=== PATIENT | male | born 1945 | race Caucasian/White ===

== ENCOUNTER 2019-01-04 04:56 | Emergency (ER) | payer MEDICARE, OTHER ==
[~2019-01-04] VITALS: Ht 165.1 cm; Wt 77.3 kg
[2019-01-04 05:04] VITALS: TEMP 97
[2019-01-04 05:34] LABS: COLLECTION METHOD CLEAN CATCH
[2019-01-04 05:35] LABS: BASO % 0.3 % (0.0-2.0); EOS # 0.2 (0.0-0.7); EOS % 1.6 % (0-4.0); GRAN # 6.4 (1.4-6.5); GRAN % 69.4 % (42.2-75.2); HEMATOCRIT 43.3 % (42.0-52.0); HEMOGLOBIN 15.2 g/dl (13.5-18.0); LYMPH # 1.8 (1.2-3.4); MEAN CELL VOLUME 90 fl (80.0-100.0); MEAN CORPUSCULAR HEMOGLOBIN 32 pg (27.0-31.0); MEAN CORPUSCULAR HGB CONC 35 g/dl (33.0-37.0); MEAN PLATELET VOLUME 9.5 fl (7.4-10.4); MONO # 0.8 (0.1-0.6); MONO % 8.5 % (1.7-9.3); PLATELET COUNT 168 K/mm3 (130-400); RED BLOOD COUNT 4.81 M/mm3 (4.20-5.60); REDCELL DISTRIBUTION WIDTH-CV 12.7 % (11.5-14.5)
[2019-01-04] MEDS ORDERED: ACTOPLUS MET 501 TAB PO (05:45)
[2019-01-04] MEDS ORDERED: ZOCOR 20MG20 MG PO (05:46)
[2019-01-04 05:49] LABS: MUCOUS Present /lpf; PH 5 (5-8); SQUAMOUS EPITHELIAL 0-2 /hpf; URINE APPEARANCE Hazy; URINE BACTERIA None Seen /hpf; URINE BILIRUBIN Negative (NEGATIVE); URINE BLOOD 3+ (NEGATIVE); URINE COLOR Yellow; URINE GLUCOSE 1+ (NEGATIVE); URINE KETONE Negative (NEGATIVE); URINE LEUKOCYTE ESTERASE Negative (NEGATIVE); URINE NITRATE Negative (NEGATIVE); URINE PROTEIN(semi-quant) Negative (NEGATIVE); URINE RBC >50 /hpf; URINE UROBILINOGEN Negative (NEGATIVE)
[2019-01-04] MEDS ORDERED: NORCO 325 MG-51 TAB PO (05:55)
[2019-01-04] MEDS ORDERED: FLOMAX 0.40.4 MG/CAP PO (05:56)
[2019-01-04 05:58] LABS: ALBUMIN 4.6 gm/dL (3.5-5.0); BILIRUBIN,TOTAL 0.9 mg/dL (0.0-1.0); CREATININE, serum 1.05 (0.66-1.25); POTASSIUM 4.3 mmol/L (3.4-5.0); TOTAL PROTEIN 7.8 gm/dL (6.4-8.2)
[2019-01-04 07:50] VITALS: BP 130/72; PULSE 65
== END 2019-01-04 07:53 | disposition home or self-care (01) ==
LOC: COL.ER 04:56
PROVIDERS: Emergency Medicine
DX: N20.1 Calculus of ureter (principal); E11.9 Type 2 diabetes mellitus without complications; Z79.84 Long term (current) use of oral hypoglycemic drugs
CPT/HCPCS: J1885; J2270; J7040; Q9967

== ENCOUNTER 2020-03-01 20:16 | Emergency (ER) | payer MEDICARE, OTHER ==
[~2020-03-01] VITALS: Ht 165.1 cm; Wt 76.4 kg
[~2020-03-01 20:16] MED LIST: ACTOPLUS MET 501 TAB PO; FLOMAX 0.40.4 MG/CAP PO; NORCO 325 MG-51 TAB PO; ZOCOR 20MG20 MG PO
[2020-03-01 20:54] LABS: BASO % 0.4 % (0.0-2.0); EOS # 0.2 (0.0-0.7); EOS % 1.5 % (0-4.0); GRAN # 7.7 (1.4-6.5); GRAN % 72.2 % (42.2-75.2); HEMATOCRIT 42.6 % (42.0-52.0); HEMOGLOBIN 15.1 g/dl (13.5-18.0); LYMPH % 18.5 % (20.0-51.0); MEAN CELL VOLUME 89 fl (80.0-100.0); MEAN CORPUSCULAR HEMOGLOBIN 31 pg (27.0-31.0); MEAN CORPUSCULAR HGB CONC 35 g/dl (33.0-37.0); MEAN PLATELET VOLUME 9.1 fl (7.4-10.4); MONO # 0.8 (0.1-0.6); PLATELET COUNT 184 K/mm3 (130-400); RED BLOOD COUNT 4.81 M/mm3 (4.20-5.60); REDCELL DISTRIBUTION WIDTH-CV 12.3 % (11.5-14.5)
[2020-03-01 20:59] LABS: ALANINE AMINOTRANSFERASE 19 U/L (4-49); ALBUMIN 4.7 gm/dL (3.5-5.0); ALKALINE PHOSPHATASE 70 U/L (50-136); ANION GAP 9 mmol/L (7-16); AST,SGOT 26 U/L (15-37); BILIRUBIN,TOTAL 1.1 mg/dL (0.0-1.0); BLOOD UREA NITROGEN 19 mg/dL (9-20); CALCIUM 9.7 mg/dL (8.4-10.2); CARBON DIOXIDE 25 mmol/L (22-30); CHLORIDE 103 mmol/L (98-107); CREATININE, serum 0.99 (0.66-1.25); GLUCOSE 157 mg/dL (74-106); LIPASE 202 U/L (23-300); POTASSIUM 4.1 mmol/L (3.4-5.0); SODIUM 137 mmol/L (137-145); TOTAL PROTEIN 7.9 gm/dL (6.4-8.2)
[2020-03-01 21:07] LABS: C-REACTIVE PROTEIN < 0.5 mg/dL (0.0-0.9)
[2020-03-01 21:11] LABS: TROPONIN-I < 0.012 ng/mL (0.000-0.035)
[2020-03-01] MEDS ORDERED: PROTONIX 40MG T40 MG PO (22:05)
[2020-03-01 23:01] VITALS: BP 129/72; PULSE 63; TEMP 98.2
== END 2020-03-01 23:09 | disposition home or self-care (01) ==
LOC: COL.ER 20:16
PROVIDERS: Emergency Medicine
DX: K21.9 Gastro-esophageal reflux disease without esophagitis (principal); E11.9 Type 2 diabetes mellitus without complications; E78.5 Hyperlipidemia, unspecified; N40.0 Benign prostatic hyperplasia without lower urinary tract symptoms; Z88.2 Allergy status to sulfonamides; Z79.84 Long term (current) use of oral hypoglycemic drugs
CPT/HCPCS: J2405

== ENCOUNTER 2020-11-28 10:51 | Emergency (ER) | payer OTHER ==
[~2020-11-28] VITALS: Ht 167.6 cm; Wt 74.5 kg
[~2020-11-28 10:51] MED LIST changes: +PROTONIX 40MG T40 MG PO
[2020-11-28 12:55] VITALS: BP 158/64; PULSE 60; TEMP 97.1
== END 2020-11-28 12:55 | disposition home or self-care (01) ==
LOC: COL.ER 10:51
DX: S63.601A Unspecified sprain of right thumb, initial encounter (principal); S60.221A Contusion of right hand, initial encounter; E78.5 Hyperlipidemia, unspecified; E11.9 Type 2 diabetes mellitus without complications; E03.9 Hypothyroidism, unspecified; Z79.899 Other long term (current) drug therapy; Z79.84 Long term (current) use of oral hypoglycemic drugs; V89.2XXA Person injured in unspecified motor-vehicle accident, traffic, initial encounter

== ENCOUNTER 2021-10-11 11:59 | Emergency (ER) | payer MEDICARE, OTHER ==
[~2021-10-11] VITALS: Ht 167.6 cm; Wt 75.5 kg
[2021-10-11 12:06] VITALS: TEMP 97.5
[2021-10-11 12:17] LABS: BASO % 0.3 % (0.0-2.0); EOS # 0.1 K/mm3 (0.0-0.7); EOS % 1.6 % (0.0-4.0); GRAN # 4.9 K/mm3 (1.4-6.5); GRAN % 65.6 % (42.2-75.2); HEMATOCRIT 43.5 % (42.0-52.0); HEMOGLOBIN 15.5 g/dl (13.5-18.0); LYMPH # 1.8 K/mm3 (1.2-3.4); LYMPH % 23.6 % (20.0-51.0); MEAN CELL VOLUME 89 fl (80.0-100.0); MEAN CORPUSCULAR HEMOGLOBIN 32 pg (27-31); MEAN CORPUSCULAR HGB CONC 36 g/dl (33.0-37.0); MONO # 0.6 K/mm3 (0.1-0.6); MONO % 8.5 % (1.7-9.3); PLATELET COUNT 184 K/mm3 (130-400); RED BLOOD COUNT 4.89 M/mm3 (4.20-5.60); REDCELL DISTRIBUTION WIDTH-CV 12.9 % (11.5-14.5)
[2021-10-11 12:39] LABS: ALBUMIN 4.4 gm/dL (3.4-4.8); BILIRUBIN,TOTAL 1.2 mg/dL (0.2-1.2); CREATININE, serum 0.97 mg/dL (0.72-1.25); POTASSIUM 4.4 mmol/L (3.5-4.5); TOTAL PROTEIN 7.9 gm/dL (6.2-8.1)
[2021-10-11 12:45] LABS: TROPONIN-I 0.011 ng/mL (0.00-0.033)
[2021-10-11 15:04] VITALS: BP 174/87; PULSE 60
== END 2021-10-11 15:05 | disposition home or self-care (01) ==
LOC: COL.ER 11:59
PROVIDERS: Personal Emergency Response Attendant
DX: R07.89 Other chest pain (principal)

== ENCOUNTER 2023-02-02 08:03 | Day surgery (SDC) | payer MEDICARE, BC ==
[~2023-02-02] VITALS: Ht 162.6 cm; Wt 97.4 kg
[~2023-02-02 08:03] MED LIST changes: -ACTOPLUS MET 501 TAB PO; +GLUCOPHAGE500 MG/TAB PO
[2023-02-02] MEDS ORDERED: HCTZ 25MG TAB25 MG PO (08:41)
[2023-02-02] MEDS ORDERED: GLUCOPHAGE500 MG/TAB PO (08:41)
[2023-02-02] MEDS ORDERED: SYNTHROID0.05 MG/TA PO (08:42)
--- NOTE | 2023-02-02 09:00 | NUR ---
The patient ambulated back to [place] [facility] independently using a steady gait and appeared to tolerate the activity well. Vital signs obtained. Consent signed. Assessment completed. Home medications reconcilled. brought back to be at his bedside. Call light is within reach. Warm blanket provided. Denies any further needs at this time.
[2023-02-02 09:05] VITALS: BP 129/61; PULSE 60; TEMP 97.4
[2023-02-02] MEDS ORDERED: NORCO 325 MG-51 TAB PO (09:38)
[2023-02-02 11:30] VITALS: BP 142/69; PULSE 58; TEMP 97.3
[2023-02-02 11:45] VITALS: BP 141/69; PULSE 55
[2023-02-02 12:00] VITALS: BP 138/76; PULSE 54
[2023-02-02 12:15] VITALS: BP 1139/71; PULSE 54
[2023-02-02 12:19] VITALS: BP 141/70; PULSE 54; TEMP 97.6
--- NOTE | 2023-02-02 18:35 | NUR ---
[id number]: PT TO [facility] FROM PACU S/P RIGHT ROBOTIC HERNIA REPAIR A&O, PLACED ON MONITOR, VSS ON RA RECEIVED REPORT AND ASSUMED CARE OF PT FROM DAVID OLVERA 3 TROCAR SITES CLOSED WITH GLUE - CDI; REPORTS MILD 2-3/10 ABDOMINAL SORENESS, OTHERWISE DENIES COMPLAINT SPOUSE AT BEDSIDE PROVIDED FOOD/FLUIDS, TOLERATING WELL PT HAS REMAINED A&O, NAD, VSS ON RA, TOLERATING PO, IS WITHOUT SIGNIFICANT COMPLAINT, WITH STEADY GAIT THRU OUT STAY IV D/C'D. D/C INSTRUCTIONS, ANY FOLLOW UP REVIEWED AND HANDED TO PT. ALL QUESTIONS AND CONCERNS ADDRESSED TO PT SATISFACTION. TAKEN TO EXIT VIA W/C WITH ALL BELONGINGS AND PAPERWORK IN HAND, ASSISTED INTO PASSENGER SEAT OF POV. SPOUSE TO DRIVE HOME.
== END 2023-02-02 12:30 | disposition home or self-care (01) ==
LOC: SDCO 08:03
DX: K40.90 Unilateral inguinal hernia, without obstruction or gangrene, not specified as recurrent (principal); Z85.038 Personal history of other malignant neoplasm of large intestine; Z98.890 Other specified postprocedural states
CPT/HCPCS: C1781; J0690; J1885; J2405; J2704; J3010; J7120

== ENCOUNTER 2023-04-24 08:30 | Outpatient (RCR) | payer MEDICARE, BC ==
[2023-04-22 16:13] LABS: BASO % 0.2 % (0.0-2.0); EOS # 0.2 K/mm3 (0.0-0.7); EOS % 2.2 % (0.0-4.0); GRAN # 6.4 K/mm3 (1.4-6.5); GRAN % 69.1 % (42.2-75.2); HEMATOCRIT 40.6 % (42.0-52.0); HEMOGLOBIN 14.8 g/dl (13.5-18.0); MEAN CELL VOLUME 88 fl (80.0-100.0); MEAN CORPUSCULAR HEMOGLOBIN 32 pg (27-31); MEAN CORPUSCULAR HGB CONC 37 g/dl (33.0-37.0); MEAN PLATELET VOLUME 9.1 fl (7.4-10.4); MONO # 0.6 K/mm3 (0.1-0.6); MONO % 6.3 % (1.7-9.3); PLATELET COUNT 193 K/mm3 (130-400); REDCELL DISTRIBUTION WIDTH-CV 12.2 % (11.5-14.5)
[2023-04-22 16:24] VITALS: BP 130/73; PULSE 64; TEMP 97.9
[2023-04-22 16:28] LABS: CALCIUM 10.1 mg/dL (8.4-10.2); CREATININE, serum 1.25 mg/dL (0.72-1.25); POTASSIUM 3.6 mmol/L (3.5-4.5)
[2023-04-23 09:02] VITALS: BP 137/73; PULSE 76; TEMP 97.9
[~2023-04-24] VITALS: Ht 162.6 cm; Wt 73.8 kg
[~2023-04-24 08:30] MED LIST changes: +HCTZ 25MG TAB25 MG PO; +NEURONTIN100 MG/CAP PO; +SYNTHROID0.05 MG/TA PO
[2023-04-24 08:50] VITALS: BP 156/86; PULSE 61; TEMP 98.5
== END 2023-04-27 08:11 | disposition home or self-care (01) ==
LOC: EUO 08:30
PROVIDERS: Internal Medicine
DX: G37.3 Acute transverse myelitis in demyelinating disease of central nervous system (principal)
CPT/HCPCS: J2930; J7050